=== PATIENT | male | born 2000 | race Caucasian/White ===

== ENCOUNTER 2018-02-26 11:04 | Emergency (ER) | payer BC ==
[~2018-02-26] VITALS: Ht 175.3 cm; Wt 78.0 kg
[2018-02-26 11:08] VITALS: BP 128/31
[2018-02-26] MEDS ORDERED: methylPREDNISolone sod succ 125mg/2ml vial IV ONE (11:35)
[2018-02-26] MEDS ORDERED: diphenhydrAMINE 50 mg/ml inj IV ONE (11:35)
[2018-02-26] MEDS ORDERED: famotidine/PF 10 mg/ml inj IV ONE (11:35)
[2018-02-26] MEDS ORDERED: PRED10TA23 PO (13:20)
[2018-02-26] MEDS ORDERED: DIPH-423 PO (13:21)
== END 2018-02-26 13:40 | disposition home or self-care (01) ==
LOC: ER 11:05
DX: L50.0 Allergic urticaria (principal); F12.90 Cannabis use, unspecified, uncomplicated
CPT/HCPCS: 96374; 96375; 99284; J1200; J2930; J3490

== ENCOUNTER 2019-01-19 18:23 | Emergency (ER) | payer BC ==
[~2019-01-19] VITALS: Ht 177.8 cm; Wt 75.0 kg
[~2019-01-19 18:23] MED LIST: DIPH-423 PO
[2019-01-19 19:20] LABS: BASOPHILS % (AUTO) 0.4 % (0-1); EOSINOPHILS % (AUTO) 0.2 % (0-6); HEMATOCRIT 48.1 % (42.0-52.0); HEMOGLOBIN 16.7 g/dl (14.0-17.9); LYMPHOCYTES # (AUTO) 2.2 X10'3 (1.1-4.8); LYMPHOCYTES % (AUTO) 27.2 % (21-51); MEAN CORPUSCULAR HGB CONC 34.8 g/dL (33.0-36.5); MEAN CORPUSCULAR VOLUME 94.6 FL (78-98); MEAN PLATELET VOLUME 7.7 FL (7.4-10.4); MONOCYTES # (AUTO) 0.6 X10'3 (0-0.9); MONOCYTES % (AUTO) 7.8 % (2-12); NEUTROPHILS # (AUTO) 5.2 X10'3 (1.8-7.7); NEUTROPHILS % (AUTO) 64.4 % (42-75); PLATELET COUNT 241 X10'3 (140-440); RED BLOOD COUNT 5.08 X10'6 (4.70-6.10); RED CELL DISTRIBUTION WIDTH 12.8 % (11.5-14.5); WHITE BLOOD COUNT 8.1 X10'3 (4.5-11.0)
[2019-01-19 19:24] LABS: ALANINE AMINOTRANSFERASE 28 U/L (12-78); ALBUMIN 4.7 G/DL (3.4-5.0); ALBUMIN/GLOBULIN RATIO 1.1 (1.1-1.5); ALKALINE PHOSPHATASE 78 IU/L (20-180); ANION GAP 10 (8-16); ASPARTATE AMINO TRANSFERASE 16 U/L (10-37); BLOOD UREA NITROGEN 11 MG/DL (7-18); BUN/CREATININE RATIO 9.7 (5.4-32.0); CALCIUM 9.3 MG/DL (8.5-10.1); CHLORIDE 102 MMOL/L (99-107); CREATININE 1.13 MG/DL (0.60-1.10); GLUCOSE 94 MG/DL (70-104); POTASSIUM 3.7 MMOL/L (3.5-5.1); SODIUM 138 MMOL/L (135-145); TOTAL PROTEIN 8.8 G/DL (6.4-8.2); eGFR 83 ML/MIN
[2019-01-19 19:26] LABS: ETHANOL < 0.010 GM/DL (0.0-0.010)
[2019-01-19 19:27] LABS: PARTIAL THROMBOPLASTIN TIME 28 SECONDS (22-32)
[2019-01-19] MEDS ORDERED: normal saline 1000ML IV soln IVB ONE (19:45)
[2019-01-19 20:23] VITALS: BP 136/82
[2019-01-19 20:27] LABS: URINE AMPHETAMINE SCREEN POSITIVE (Neg); URINE BARBITUATE SCREEN NEGATIVE (Neg); URINE BENZODIAZEPINES SCREEN NEGATIVE (Neg); URINE CANNABINOID SCREEN NEGATIVE (Neg); URINE COCAINE SCREEN NEGATIVE (Neg); URINE METHADONE SCREEN NEGATIVE (Neg); URINE OPIATE SCREEN POSITIVE (Neg); URINE PHENCYCLIDINE SCREEN NEGATIVE (Neg)
== END 2019-01-19 20:24 | disposition home or self-care (01) ==
LOC: ER 18:24
DX: R55 Syncope and collapse (principal); E86.0 Dehydration; F12.90 Cannabis use, unspecified, uncomplicated; F10.99 Alcohol use, unspecified with unspecified alcohol-induced disorder; Z79.899 Other long term (current) drug therapy; Y90.9 Presence of alcohol in blood, level not specified
CPT/HCPCS: 36415; 71045; 80053; 80305; 80320; 84484; 85025; 85610; 85730; 93005; 96360; 99284; J7030